=== PATIENT | male | born 1965 | race Caucasian/White ===

== ENCOUNTER 2024-09-06 08:52 | Outpatient (CLI) | payer OTHER, SELFPAY | END 2024-09-06 08:53 | disposition home or self-care (01) | LOC: NFLDREF 09-10 02:09 | PROVIDERS: PCP Family Medicine; Referring Provider Family Medicine; Visit Provider Family Medicine | DX: Z00.00 Encounter for general adult medical examination without abnormal findings (principal); E78.5 Hyperlipidemia, unspecified; R05.9 Cough, unspecified; Z12.5 Encounter for screening for malignant neoplasm of prostate | CPT/HCPCS: 80053; 80061; G0103 ==

== ENCOUNTER 2024-09-10 10:42 | Outpatient (CLI) | payer OTHER, SELFPAY ==
--- NOTE | 2024-09-10 11:00 | CRLHL7_ITS ---
For Patients: As a result of the Century Cures Act, medical imaging exams and procedure reports are released immediately into your electronic medical record. You may view this report before your referring provider. If you have questions, please contact your health care provider. INDICATION: Chronic cough TECHNIQUE: CT chest without contrast. COMPARISON: 06/24/2024 chest x-ray FINDINGS: Lungs and pleura: No suspicious nodules or infiltrates. Mild scarring or atelectasis in the lung bases. No pleural effusions, pleural thickening, or pneumothorax. Heart and vasculature: Heart size is normal. Thoracic aorta and pulmonary artery are normal in caliber. Lymph nodes/mediastinum: No mediastinal, hilar, or axillary adenopathy. Chest wall: No masses. Upper abdomen: Normal. Bones: Unremarkable for age. IMPRESSION: No cause for cough identified. Please note that all CT scans at this facility use dose modulation, iterative reconstruction, and/or weight-based dosing when appropriate to reduce radiation dose to as low as reasonably achievable. Dictated by Kirk Winkler MD @ 09/11/2024 2:26:06 PM (Electronically Signed)
== END 2024-09-10 10:43 | disposition home or self-care (01) ==
PROVIDERS: PCP Family Medicine; Visit Provider Family Medicine
DX: R05.9 Cough, unspecified (principal)
CPT/HCPCS: 71250